=== PATIENT | female | born 1985 | race African-American/Black ===

== ENCOUNTER 2017-11-25 14:15 | Outpatient (CLI) | payer MEDICAID, OTHER ==
[~2017-11-25] VITALS: Ht 162.6 cm; Wt 65.9 kg
[~2017-11-25 14:15] MED LIST: ALBU8.5H8 INH
[2017-11-25 14:23] VITALS: BP 122/68
[2017-11-25] MEDS ORDERED: ALBUTEROL SULFATE 2.5 MG/3 ML ONE (14:49)
== END 2017-11-25 15:40 | disposition home or self-care (01) ==
LOC: LDOP 14:15
PROVIDERS: ATTEND Obstetrics & Gynecology
DX: O26.893 Other specified pregnancy related conditions, third trimester (principal); R06.02 Shortness of breath; Z3A.36 36 weeks gestation of pregnancy
CPT/HCPCS: 59025; 94640; 99211; G0463

== ENCOUNTER 2017-12-22 06:22 | Inpatient (IN) | payer OTHER ==
[~2017-12-22] VITALS: Ht 162.6 cm; Wt 68.0 kg
[~2017-12-22 06:22] MED LIST changes: +DOXY1TAB3 PO; +ONDA4TAB7 PO
[2017-12-22] MEDS ORDERED: D5%-LACTATED RINGERS 1,000 ML IV SCH (06:23)
[2017-12-22] MEDS ORDERED: OXYTOCIN 30U/ 0.9% NaCL 500ML 500 ML IV ONE (06:23)
[2017-12-22] MEDS: LACTATED RINGERS 1,000 ML IV SCH ×2 (06:25→13:57)
[2017-12-22 06:30] VITALS: BP 139/86
[2017-12-22] MEDS ORDERED: MISOPROSTOL 25 MCG TABLET VG PRN (06:30)
[2017-12-22] MEDS ORDERED: FENTANYL PF 100 MCG/2ML IVPush PRN (06:30)
[2017-12-22] MEDS ORDERED: ONDANSETRON 2MG/ML, 2ML IVPush PRN (06:30)
[2017-12-22] MEDS ORDERED: CALCIUM CARBONATE 500 MG TAB.CHEW PO PRN (06:30)
[2017-12-22] MEDS ORDERED: TERBUTALINE 1 MG/ML, 1ML IVPush PRN (06:30)
[2017-12-22] MEDS ORDERED: FENTANYL PF 100 MCG/2ML IV PRN (06:30)
[2017-12-22 06:46] LABS: BASOPHILS # (AUTO) 0.03 x10^3/uL (0-0.1); BASOPHILS % (AUTO) 0 % (0-1); EOSINOPHILS # (AUTO) 0.11 x10^3/uL (0-0.4); EOSINOPHILS % (AUTO) 2 % (1-7); LYMPHOCYTES % (AUTO) 19 % (22-44); MD NO; MEAN CORPUSCULAR HGB CONC 33.5 g/dL (32.4-35.8); MEAN CORPUSCULAR VOLUME 89.7 fL (80-100); MEAN PLATELET VOLUME 9.9 fL (7.4-10.4); MONOCYTES # (AUTO) 0.73 x10^3/uL (0.2-0.8); MONOCYTES % (AUTO) 10 % (2-9); NEUTROPHILS # (AUTO) 5.14 x10^3/uL (1.8-6.8); NEUTROPHILS % (AUTO) 69 % (42-75); PLATELET COUNT 165 x10^3/uL (130-400)
[2017-12-22] MEDS ORDERED: MISOPROSTOL 25 MCG TABLET ONE ×2 (07:57→14:18)
[2017-12-22 09:15] LABS: ALBUMIN 2.8 g/dL (3.4-5.0); ANION GAP 8 mmol/L (5-15); CALCIUM 8.8 mg/dL (8.5-10.1); CHLORIDE 108 mmol/L (98-107); CREATININE 0.52 mg/dL (0.55-1.02)
[2017-12-22 09:21] LABS: ALKALINE PHOSPHATASE 123 U/L (45-117); BILIRUBIN,TOTAL 0.4 mg/dL (0.2-1.0); TOTAL PROTEIN 6.8 g/dL (6.4-8.2)
[2017-12-22 10:13] LABS: ALANINE AMINOTRANSFERASE 14 U/L (12-78)
[2017-12-22] MEDS ORDERED: NEWBORN KIT ONE (15:28)
[2017-12-22] MEDS ORDERED: OXYTOCIN 30U/ 0.9% NaCL 500ML 500 ML ONE (15:29)
[2017-12-22] MEDS ORDERED: MISOPROSTOL 200 MCG TABLET ONE (15:29)
[2017-12-22] MEDS ORDERED: LIDOCAINE/PF 1%, 30ML ONE (15:29)
[2017-12-22] MEDS ORDERED: OXYTOCIN 30U/ 0.9% NaCL 500ML 500 ML IV PRN (15:33)
[2017-12-22] MEDS ORDERED: LACTATED RINGERS 1,000 ML IV SCH (17:18)
[2017-12-22] MEDS ORDERED: FENTANYL/BUPIV./NS/PF 250 ML EPIDCONT SCH ×2 (17:18→21:08)
[2017-12-22] MEDS ORDERED: FENTANYL PF 500 MCG, BUPIVACAINE/PF 0.5%, 30ML 62.5 ML in SODIUM CHLORIDE 0.9% 177.5 ML EPIDCONT SCH (17:30)
[2017-12-22] MEDS ORDERED: LACTATED RINGERS 1,000 ML IVBOLUS PRN (17:30)
[2017-12-22] MEDS ORDERED: FENTANYL PF 100 MCG/2ML ONE ×2 (21:21→22:14)
[2017-12-22] MEDS ORDERED: BUPIVACAINE 0.25% ONE (22:14)
[2017-12-22] MEDS ORDERED: TERBUTALINE 1 MG/ML, 1ML ONE (23:41)
[2017-12-23] VITALS (7 sets, daily range): BP systolic 114–136; BP diastolic 71–87
[2017-12-23] MEDS ORDERED: LACTATED RINGERS 1,000 ML IV SCH ×2 (00:31→02:45)
[2017-12-23] MEDS ORDERED: FENTANYL/BUPIV./NS/PF 250 ML EPIDCONT SCH (00:31)
[2017-12-23] MEDS ORDERED: ONDANSETRON 2MG/ML, 2ML IVPush PRN (01:00)
[2017-12-23] MEDS ORDERED: LACTATED RINGERS 1,000 ML IVBOLUS PRN (01:00)
[2017-12-23] MEDS ORDERED: EPHEDRINE 50 MG/ML, 1ML IVPush PRN (01:00)
[2017-12-23] MEDS ORDERED: METOCLOPRAMIDE 5 MG/ML, 2ML ONE (01:12)
[2017-12-23] MEDS ORDERED: SODIUM CITRATE/CITRIC ACID 30 ML UDC ONE (01:12)
[2017-12-23] MEDS ORDERED: FENTANYL PF 100 MCG/2ML ONE (01:19)
[2017-12-23] MEDS ORDERED: MISOPROSTOL 200 MCG TABLET ONE (01:47)
[2017-12-23] MEDS ORDERED: BUPIVACAINE/PF 0.25% ONE (01:48)
[2017-12-23] MEDS ORDERED: PHENYLEPHRINE 10 MG/ML ONE (01:48)
[2017-12-23] MEDS ORDERED: OXYTOCIN 10 UNITS/ML, 1ML ONE (01:48)
[2017-12-23] MEDS ORDERED: WATER-INJECTION,STERILE 10 ML IV ONE (01:48)
[2017-12-23] MEDS ORDERED: LIDOCAINE-MPF 2% ,5ML ONE (01:48)
[2017-12-23] MEDS ORDERED: EPHEDRINE 50 MG/ML, 1ML ONE (01:48)
[2017-12-23] MEDS ORDERED: CEFAZOLIN 1,000 MG ONE (01:48)
[2017-12-23] MEDS ORDERED: morphine SULFATE/PF 0.5 MG/ML, 10ML ONE (01:53)
[2017-12-23] MEDS ORDERED: MEPERIDINE/PF 50 MG/ML ONE (02:28)
[2017-12-23] MEDS: OXYTOCIN 30U/ 0.9% NaCL 500ML 500 ML IV SCH ×3 (02:45→22:45)
[2017-12-23] MEDS: LACTATED RINGERS 1,000 ML IV SCH ×4 (02:45→18:45)
[2017-12-23] MEDS ORDERED: ACETAMINOPHEN 325 MG TABLET PO PRN (03:00)
[2017-12-23] MEDS ORDERED: ONDANSETRON 2MG/ML, 2ML IV PRN (03:00)
[2017-12-23] MEDS ORDERED: morphine SULFATE 10 MG/ML, 1ML IVPush PRN ×2 (03:00)
[2017-12-23] MEDS ORDERED: CARBOPROST TROMETHAMINE 250 MCG/ML, 1ML IM PRN (03:00)
[2017-12-23] MEDS ORDERED: MISOPROSTOL 200 MCG TABLET PR PRN (03:00)
[2017-12-23 03:11] LABS: MEAN CORPUSCULAR HEMOGLOBIN 30.3 pg (27.0-34.8); MEAN CORPUSCULAR HGB CONC 33.8 g/dL (32.4-35.8); MEAN CORPUSCULAR VOLUME 89.7 fL (80-100); RED BLOOD COUNT 3.79 x10^6/uL (3.82-5.3); RED CELL DISTRIBUTION WIDTH 14.6 % (9.6-15.2)
[2017-12-23 03:14] LABS: PROTHROMBIN TIME 10.3 Seconds (9.6-11.5)
[2017-12-23 03:19] LABS: BASOPHILS # (AUTO) 0.01 x10^3/uL (0-0.1); BASOPHILS % (AUTO) 0 % (0-1); EOSINOPHILS # (AUTO) 0.08 x10^3/uL (0-0.4); EOSINOPHILS % (AUTO) 1 % (1-7); LYMPHOCYTES # (AUTO) 1.37 x10^3/uL (1-3.4); LYMPHOCYTES % (AUTO) 11 % (22-44); MD SCAN; MEAN PLATELET VOLUME 10.6 fL (7.4-10.4); MONOCYTES # (AUTO) 0.38 x10^3/uL (0.2-0.8); MONOCYTES % (AUTO) 3 % (2-9); NEUTROPHILS # (AUTO) 10.36 x10^3/uL (1.8-6.8); NEUTROPHILS % (AUTO) 85 % (42-75); PLATELET COUNT 143 x10^3/uL (130-400)
[2017-12-23] MEDS: OXYcodone/APAP 5/325MG TABLET PO PRN ×5 (04:50→21:29)
[2017-12-23] MEDS: KETOROLAC 30 MG/1 ML IVPush SCH ×3 (06:11→18:48)
[2017-12-23] MEDS: PRENATAL VIT/IRON/FA 1 EACH TABLET PO SCH (09:04)
[2017-12-23] MEDS: DOCUSATE 100 MG CAPSULE PO PRN ×2 (09:04→21:29)
[2017-12-23 10:05] LABS: BASOPHILS # (AUTO) 0.02 x10^3/uL (0-0.1); BASOPHILS % (AUTO) 0 % (0-1); EOSINOPHILS # (AUTO) 0.06 x10^3/uL (0-0.4); EOSINOPHILS % (AUTO) 1 % (1-7); LYMPHOCYTES # (AUTO) 1.06 x10^3/uL (1-3.4); LYMPHOCYTES % (AUTO) 10 % (22-44); MD NO; MEAN CORPUSCULAR HEMOGLOBIN 30.9 pg (27.0-34.8); MEAN CORPUSCULAR HGB CONC 33.9 g/dL (32.4-35.8); MEAN CORPUSCULAR VOLUME 90.9 fL (80-100); MEAN PLATELET VOLUME 10.3 fL (7.4-10.4); MONOCYTES # (AUTO) 0.75 x10^3/uL (0.2-0.8); MONOCYTES % (AUTO) 7 % (2-9); NEUTROPHILS # (AUTO) 8.74 x10^3/uL (1.8-6.8); NEUTROPHILS % (AUTO) 82 % (42-75); PLATELET COUNT 142 x10^3/uL (130-400); RED BLOOD COUNT 3.41 x10^6/uL (3.82-5.3); RED CELL DISTRIBUTION WIDTH 14.8 % (9.6-15.2)
[2017-12-24] MEDS: KETOROLAC 30 MG/1 ML IVPush SCH ×4 (00:32→19:47)
[2017-12-24] MEDS: OXYcodone/APAP 5/325MG TABLET PO PRN ×3 (02:17→19:48)
[2017-12-24] MEDS: LACTATED RINGERS 1,000 ML IV SCH ×3 (02:45→18:45)
[2017-12-24 03:42] VITALS: BP 124/78
[2017-12-24 08:00] VITALS: BP 128/80
[2017-12-24] MEDS: OXYTOCIN 30U/ 0.9% NaCL 500ML 500 ML IV SCH ×2 (08:45→18:45)
[2017-12-24] MEDS: PRENATAL VIT/IRON/FA 1 EACH TABLET PO SCH (09:21)
[2017-12-24] MEDS: DOCUSATE 100 MG CAPSULE PO PRN ×2 (09:21→19:47)
[2017-12-24 19:40] VITALS: BP 145/87
[2017-12-25] MEDS: LACTATED RINGERS 1,000 ML IV SCH ×3 (02:45→14:50)
[2017-12-25] MEDS: KETOROLAC 30 MG/1 ML IVPush SCH (02:46)
[2017-12-25] MEDS: IBUPROFEN 800 MG TABLET PO PRN ×2 (02:52→14:52)
[2017-12-25] MEDS: OXYcodone/APAP 5/325MG TABLET PO PRN ×3 (02:52→14:52)
[2017-12-25] MEDS: OXYTOCIN 30U/ 0.9% NaCL 500ML 500 ML IV SCH ×2 (04:45→11:01)
[2017-12-25] MEDS: LEVOTHYROXINE 75 MCG TABLET PO SCH (06:00)
[2017-12-25 07:05] VITALS: BP 122/80
[2017-12-25] MEDS ORDERED: SIMETHICONE 80 MG CHEW TAB ONE (08:46)
[2017-12-25] MEDS: PRENATAL VIT/IRON/FA 1 EACH TABLET PO SCH (09:05)
[2017-12-25] MEDS: DOCUSATE 100 MG CAPSULE PO PRN (09:05)
[2017-12-25 20:30] VITALS: BP 145/92
[2017-12-26] MEDS: OXYcodone/APAP 5/325MG TABLET PO PRN ×3 (00:02→12:31)
[2017-12-26] MEDS: IBUPROFEN 800 MG TABLET PO PRN ×2 (00:02→08:05)
[2017-12-26] MEDS: OXYTOCIN 30U/ 0.9% NaCL 500ML 500 ML IV SCH (00:45)
[2017-12-26] MEDS: LACTATED RINGERS 1,000 ML IV SCH (02:45)
[2017-12-26] MEDS: LEVOTHYROXINE 75 MCG TABLET PO SCH (05:38)
[2017-12-26 08:01] VITALS: BP 125/73
[2017-12-26] MEDS: DOCUSATE 100 MG CAPSULE PO PRN (08:05)
[2017-12-26] MEDS ORDERED: IBUP-1222 PO ×3 (09:46→09:48)
[2017-12-26] MEDS ORDERED: SENN-92 PO ×3 (09:46→09:48)
[2017-12-26] MEDS ORDERED: OXYC-307 PO (09:49)
== END 2017-12-26 13:21 | disposition home or self-care (01) | DRG 765 ==
LOC: LDIP 06:22 → 2NW 12-23 04:02
PROVIDERS: ADMIT Obstetrics & Gynecology; ATTEND Obstetrics & Gynecology
PROC: 10D00Z1 Extraction of Products of Conception, Low, Open Approach (ICD-10-PCS; principal; 2017-12-23)
DX: O76 Abnormality in fetal heart rate and rhythm complicating labor and delivery (principal); O72.1 Other immediate postpartum hemorrhage; O13.4 Gestational [pregnancy-induced] hypertension without significant proteinuria, complicating childbirth; O43.123 Velamentous insertion of umbilical cord, third trimester; O99.284 Endocrine, nutritional and metabolic diseases complicating childbirth; O77.0 Labor and delivery complicated by meconium in amniotic fluid; E03.9 Hypothyroidism, unspecified; O99.52 Diseases of the respiratory system complicating childbirth; J45.909 Unspecified asthma, uncomplicated; Z37.0 Single live birth; Z3A.40 40 weeks gestation of pregnancy
CPT/HCPCS: 36415; 80053; 82803; 84550; 85025; 85384; 85610; 85730; 86850; 86900; 88305; J0690; J1885; J2175; J2274; J3010; J3490; J2370; J2590; J7050; J7120